=== PATIENT | male | born 1960 | race Caucasian/White ===

== ENCOUNTER 2018-01-26 12:43 | Outpatient (CLI) | payer BC ==
--- NOTE | 2018-01-26 15:03 | MRI ---
MRI LUMBAR SPINE WITHOUT CONTRAST: INDICATIONS: Low back pain. Radiation to right leg. Lumbar radiculopathy. TECHNIQUE: Multiplanar, multisequential imaging of the lumbar spine obtained. FINDINGS: The lumbar vertebrae maintain normal height and alignment. Disk spaces are preserved. L1-L2: There is a small asymmetric disk protrusion, paracentrally, on the left, flattening the anter ior thecal sac on the left. No impingement on the conus. Minimal central canal stenosis. L2-L3: There is a mild diffuse disk bulge with a tiny protrusion, paracentrally, on the right, mildl y indenting the anterior thecal sac on the right. No significant central canal or foraminal stenosis seen. L3-L4: No significant disk bulge. Mild facet hypertrophy. No significant central canal stenosis. L4-L5: Mild diffuse disk bulge flattens the thecal sac. Facet hypertrophy. Mild central canal sten osis. Left foraminal stenosis secondary to asymmetric disk bulge and facet hypertrophy. L5-S1: There is disk protrusion centrally and paracentrally, to the right, which displaces the trave rsing right S1 nerve root. Facet hypertrophy. Mild central canal stenosis. IMPRESSION: 1. Disk protrusion at L5-S1, centrally and to the right, as described above. 2. Disk bulge and small protrusion seen at the other levels, as described. POS: AYESHA
== END 2018-01-26 12:44 | disposition home or self-care (01) ==
LOC: TBSIIMAG 12:43
PROVIDERS: ATTEND Neurological Surgery
DX: M51.16 Intervertebral disc disorders with radiculopathy, lumbar region (principal); M51.17 Intervertebral disc disorders with radiculopathy, lumbosacral region
CPT/HCPCS: 72148

== ENCOUNTER 2018-07-19 04:59 | Outpatient (CLI) | payer BC ==
[2018-07-19 15:49] LABS: Hemoglobin 16.9 g/dL (14.0-18.0); Mean Corpuscular HGB CONC 33.9 g/dL (32.0-36.0); Mean Corpuscular Hemoglobin 31.8 pg (27.0-31.0); Mean Corpuscular Volume 93.8 fL (78.0-98.0); Mean Platelet Volume 7.4 fL (7.4-10.4); Platelet Count 203 thou/uL (130-400); RBC Distribution Width 11.2 % (11.5-14.5); Red Blood Cell (RBC) Count 5.31 mill/uL (4.70-6.10); White Blood Cell (WBC) Count 4.3 thou/uL (4.8-10.8)
[2018-07-19 16:07] LABS: Anion Gap 14 mmol/L (10-20); BUN (Urea Nitrogen) 14 mg/dL (8.4-25.7); Calc. Creatinine Clearance 0 mL/min (70-130); Calcium 9.7 mg/dL (7.8-10.44); Carbon Dioxide 25 mmol/L (22-29); Chloride 105 mmol/L (98-107); Estimated GFR-MDRD 85; Glucose 80 mg/dL (70-105); Potassium 4.4 mmol/L (3.5-5.1); Sodium 140 mmol/L (136-145)
== END 2018-07-19 05:00 | disposition home or self-care (01) ==
LOC: LABBT 04:59
PROVIDERS: ATTEND Neurological Surgery
DX: Z01.818 Encounter for other preprocedural examination (principal); M54.16 Radiculopathy, lumbar region
CPT/HCPCS: 80048; 85027; 93005; 93010

== ENCOUNTER 2018-07-19 12:42 | Outpatient (CLI) | payer BC ==
--- NOTE | 2018-07-19 15:04 | MRI ---
MRI LUMBAR SPINE WITHOUT CONTRAST: INDICATIONS: Lumbar radiculopathy. TECHNIQUE: Multiplanar, multisequential imaging of the lumbar spine obtained. FINDINGS: The lumbar vertebrae maintain normal height and alignment. There are degenerative signal changes and mild loss of disk space at L5-S1. The other disk spaces are preserved. Vertebral body signal is no rmal with no edema or compression. At the L1-L2 level, there is a mild disk bulge with small asymmetric disk protrusion, paracentrally, on the left, which indents the anterior thecal sac. Mild facet arthrosis. No significant central ca nal or foraminal stenosis. At the L2-L3 level, there is mild diffuse disk bulge. There is a tiny focal protrusion centrally and slightly to the right, flattening the anterior thecal sac. Facet hypertrophy. Mild central canal s tenosis. At the L3-L4 level, there is evidence of a small annular fissure. Minimal disk bulge abuts the anter ior thecal sac. Facet hypertrophy. No significant central canal or foraminal stenosis. At the L4-L5 level, there is an annular fissure and mild diffuse disk bulge. There is a small asymme tric protrusion on the left, which has foraminal encroachment. This does appear to mildly displace t he traversing left L5 nerve root. Mild central canal stenosis. At the L5-S1 level, there is an annular fissure. There is a disk protrusion paracentrally on the rig ht, abutting the thecal sac and impinging on the traversing right S1 nerve root. This small protrusi on measures 7 to 8 mm in AP dimension in the axial plane, in the anterior spinal canal, to the right of midline. There is minimal inferior extension of this small disk extrusion. IMPRESSION: 1. Disk protrusion, paracentrally, on the right, at L5-S1, with mild extruded disk, exhibiting sligh t inferior migration. Extruded disk displaces the traversing right S1 nerve root. 2. Small focal protrusions at L1-L2 and at L2-L3, as described. POS: C
== END 2018-07-19 12:43 | disposition home or self-care (01) ==
LOC: SCSMRI 12:42
PROVIDERS: ATTEND Neurological Surgery
DX: M51.16 Intervertebral disc disorders with radiculopathy, lumbar region (principal); M51.27 Other intervertebral disc displacement, lumbosacral region
CPT/HCPCS: 72148

== ENCOUNTER 2018-07-24 07:48 | Day surgery (SDC) | payer BC ==
[2018-07-19 14:44] VITALS: BMI 24.3
[2018-07-24] MEDS ORDERED: Ketorolac Tromethamine 30 MG/ML VIAL ONE (09:24)
[2018-07-24] MEDS ORDERED: Lidocaine 2% PF 5 ML VIAL ONE (09:24)
[2018-07-24] MEDS ORDERED: Dexamethasone 20 MG/5 ML VIAL ONE (09:24)
[2018-07-24] MEDS ORDERED: PROPOFOL 200 MG/20 ML VIAL ONE (09:24)
[2018-07-24] MEDS ORDERED: Ondansetron PF 4 MG/2 ML Vial ONE (09:24)
[2018-07-24] MEDS ORDERED: Rocuronium Bromide 10 MG/ML (10ML VIAL) ONE (09:24)
[2018-07-24] MEDS ORDERED: Glycopyrrolate 0.2 MG/ML 5 ML SYRINGE ONE (09:24)
[2018-07-24] MEDS ORDERED: Fentanyl 100 MCG/2 ML VIAL ONE (09:59)
--- NOTE | 2018-07-24 17:07 | OP ---
DATE OF PROCEDURE: 07/24/2018 PIPING ENGINEER: Yosef Lott PA-C PROCEDURE PERFORMED: Right L5-S1 microdiskectomy, operative microscope. DESCRIPTION OF PROCEDURE: The patient was brought to the operating room and intubated. He was rolled in a prone position on gel-filled chest rolls. An incision was made exposing right L5 and S1, and the level was confirmed by x-ray. We performed right L5-S1 hemilaminectomy, removed ligament, identified the right S1 nerve root, and then, using operative microscope and microdissection technique, a large right L5-S1 disk bulge was identified and removed in multiple large fragments. A complete decompression of right S1 was achieved. The wound was then extensively irrigated Maximum hemostasis was secured. Vancomycin powder was applied and the wound was closed in anatomic layers. Job ID: [id number]
== END 2018-07-24 19:45 | disposition home or self-care (01) ==
LOC: SDC 07:48
PROVIDERS: ATTEND Neurological Surgery
PROC: 0SB40ZZ Excision of Lumbosacral Disc, Open Approach (ICD-10-PCS; principal; 2018-07-24)
PROC: 01NB0ZZ Release Lumbar Nerve, Open Approach (ICD-10-PCS; principal; 2018-07-24)
DX: M51.17 Intervertebral disc disorders with radiculopathy, lumbosacral region (principal); Z79.899 Other long term (current) drug therapy
CPT/HCPCS: 51798; 76000; J0131; J0690; J1100; J1885; J2001; J2405; J2704; J3010; J3370